=== PATIENT | male | born 1985 | race American Indian/Alaskan Native ===

== ENCOUNTER 2020-04-11 13:09 | Emergency (ER) | payer OTHER ==
--- NOTE | 2020-04-11 14:06 | XRay Report ---
Right tibia and fibula 4 views INDICATION: Laceration FINDINGS: Tibia and fibula appear intact. No acute fracture seen. No periosteal reaction. Signer Name: Dirk Small MD Signed: 04/11/2020 2:02 PM Workstation Name: [id number]
[2020-04-11 14:55] VITALS: BP 140/84
--- NOTE | 2020-04-11 14:58 | Emergency Department Report ---
ED Laceration HPI - HPI Chief Complaint: Laceration/Recheck/Suture Stated Complaint: RT LEG LAC Time Seen by Provider: 04/11/20 13:18 Occurred When: Today Location: Lower Extremity Severity: mild Tetanus Status: Up to Date Laceration Symptoms: Yes Pain, No Foreign Body Sensation, No Numbness, No Weakness Other History: This is a 34-year-old male nontoxic, well nourished in appearance, no acute signs of distress presents to the ED with c/o of right knee laceration that occurred today. Patient stated he was in a physical education at work and hit his right knee against the bathtub. Patient denies decreased sensation or range of motion. Patient stated bleeding is under control. Denies any numbness, tingling, fever, chills, nausea, vomiting, chest pain, shortness of breath, headache or stiff neck. Patient denies any allergies to significant past medical history. Patient is that he is up-to-date up-to-date with tetanus as of 2019. ED Review of Systems ROS: Stated complaint: RT LEG LAC Other details as noted in HPI Constitutional: denies: chills, fever Eyes: denies: eye pain, eye discharge, vision change ENT: denies: ear pain, throat pain Respiratory: denies: cough, shortness of breath, wheezing Cardiovascular: denies: chest pain, palpitations Endocrine: no symptoms reported Gastrointestinal: denies: abdominal pain, nausea, diarrhea Genitourinary: denies: urgency, dysuria Musculoskeletal: denies: back pain, joint swelling, arthralgia Skin: denies: rash, lesions Neurological: denies: headache, weakness, paresthesias Psychiatric: denies: anxiety, depression Hematological/Lymphatic: denies: easy bleeding, easy bruising ED Past Medical Hx - Past Medical History Previous Medical History?: No - Surgical History Past Surgical History?: No - Social History Smoking Status: Never Smoker Substance Use Type: None - Medications Home Medications: Home Medications Medication Instructions Recorded Confirmed Last Taken Type Naproxen 500 mg PO Q12H PRN #12 tablet 04/11/20 Unknown Rx Sulfamethoxazole/Trimethoprim 1 each PO BID #14 tablet 04/11/20 Unknown Rx [Bactrim DS TAB] Laceration Physical Exam - Exam General: Vital signs noted. No distress. Alert and acting appropriately. Wound Length (cm): 7 Laceration Location: Lower Extremity Full Body Front + Back: 1 - 7 cm flap lac Laceration Exam: Yes Normal Distal CMS, No Foreign Body, No Exposed Tendon, Vessel, or Nerve, No Tendon Injury ED Course Vital Signs 04/11/20 13:22 Temperature 98.5 F Pulse Rate 87 Respiratory 16 Rate Blood Pressure 140/84 O2 Sat by Pulse 98 Oximetry - Reevaluation(s) Reevaluation #1: 04/11/20 14:55 Patient is speaking in full sentences with no signs of distress noted. - Laceration /Wound Repair Right Leg Wound Location: lower extremity (Right knee) Wound Length (cm): 7 Wound's Depth, Shape: irregular, flap Wound Explored: clean Irrigated w/ Saline (ccs): 40 Betadine Prep?: Yes Volume Anesthetic (ccs): 10 (2% lidocaine plain) Number of Sutures: 15 (Stable) Layer Closure?: Yes Deep Layer Suture Size/Type: 4:0 (Vicryl) Number Deep Layer Sutures: 5 Sterile Dressing Applied?: Yes Progress: Under sterile field, I used Betadine to clean the area. I then used 40 mL of normal saline to flush the area. I then used 2% lidocaine plain and injected 10 mL to the wound. I then used a 4-0 Vicryl to suture deeper dermis with total of 5 sutures placed. A stapler has been used to approximate the laceration with total of 15 ameena placed. I then applied a sterile 4 x 4 with tape. Minimal bleeding noted but is under control. Patient tolerated procedure well with no signs of distress. ED Medical Decision Making - Radiology Data Referring Physician: OLYA FUENTES Patient Name: HIEU VIERA Date of : 1985 Sex: Male Report Date: 2020-04-11 Report Status: Finalized [facility] [address] [place] [address] XRay Report Signed Patient: HIEU VIERA MR#: [id number] : 0 1985 Acct:[id number] Age/Sex: 34 / M ADM Date: 04/11/20 Loc: ED Attending Dr: Ordering Physician: OLYA FUENTES NP Date of Service: 04/11/20 Procedure(s): XR tibia fibula 2V RT Accession Number(s): [id number] cc: OLYA FUENTES NP Fluoro Time In Minutes: Right tibia and fibula 4 views INDICATION: Laceration FINDINGS: Tibia and fibula appear intact. No acute fracture seen. No periosteal reaction. Signer Name: Dirk Small MD Signed: 04/11/2020 2:02 PM Workstation Name: [id number] Transcribed By: CW Dictated By: EDIS SMALL MD Electronically Authenticated By: EDIS SMALL MD Signed Date/Time: 04/11/201401 DD/ 00 TD/TT: - Medical Decision Making This is a 34-year-old male that presents with laceration. Patient is stable and was examined by me. The laceration suturing has been performed and has been performed and patient tolerated well. A sterile dressing has been applied. Patient was educated on proper wound care. Patient is discharged with Bactrim. Patient was instructed to return in 10 days for suture removal. patient is notified of the x-ray results with no questions noted by the patient. Atient was instructed to refer to Follow-up with a primary care doctor in 3-5 days or if symptoms worsen and continue return to emergency room as soon as possible. At time of discharge, the patient does not seem toxic or ill in appearance. No acute signs of distress noted. Patient agrees to discharge treatment plan of care. No further questions noted by the patient. Critical care attestation.: If time is entered above; I have spent that time in minutes in the direct care of this critically ill patient, excluding procedure time. ED Disposition Clinical Impression: Laceration of right knee Qualifiers: Encounter type: initial encounter Qualified Code(s): S81.011A - Laceration w ithout foreign body, right knee, initial encounter Disposition: DC- TO HOME OR SELFCARE Is pt being admited?: No Does the pt Need Aspirin: No Condition: Stable Instructions: Laceration Care, Adult Additional Instructions: Follow-up with a primary care doctor in 3-5 days or if symptoms worsen and continue return to emergency room as soon as possible. Return in 10 days for suture removal. Prescriptions: Sulfamethoxazole/Trimethoprim [Bactrim DS TAB] 1 each PO BID #14 tablet Naproxen 500 mg PO Q12H PRN #12 tablet PRN Reason: Pain , Severe (7-10) Referrals: PRIMARY CAREMD [Referring] - 3-5 Days SUZETTE HIGGINS MD [Staff Physician] - 3-5 Days Time of Disposition: 14:59
== END 2020-04-11 15:26 | disposition home or self-care (01) ==
LOC: ED 13:09
DX: S81.011A Laceration without foreign body, right knee, initial encounter (principal); Z79.899 Other long term (current) drug therapy; W22.8XXA Striking against or struck by other objects, initial encounter; Y93.89 Activity, other specified; Y92.89 Other specified places as the place of occurrence of the external cause; Y99.8 Other external cause status
CPT/HCPCS: 99283